=== PATIENT | male | born 1975 | race Caucasian/White ===

== ENCOUNTER 2022-01-24 06:57 | Inpatient (IN) | payer OTHER ==
[2022-01-24 07:47] LABS: ALT (SGPT) 14 U/L (8-55); AST (SGOT) 16 U/L (5-34); Acetaminophen Less than 10.0 mcg/mL (10.0-30.0); Albumin 4.9 g/dL (3.5-5.0); Alcohol Less than 10 mg/dL (Less than 10); Alkaline Phosphatase 106 U/L (40-110); Anion Gap 14 mmol/L (10-20); BUN (Urea Nitrogen) 13 mg/dL (8.9-20.6); Bilirubin, Total 0.8 mg/dL (0.2-1.2); Calc. Creatinine Clearance 0 mL/min (70-130); Calcium 10.2 mg/dL (7.8-10.44); Carbon Dioxide 27 mmol/L (22-29); Chloride 102 mmol/L (98-107); Estimated GFR 87; Globulin 3.2 g/dL (2.4-3.5); Glucose 138 mg/dL (70-105); Potassium 3.6 mmol/L (3.5-5.1); Protein, Total 8.1 g/dL (6.0-8.3); Salicylate Less than 8.0 mg/dL (15.0-30.0); Sodium 139 mmol/L (136-145)
[2022-01-24 07:51] LABS: #Basophils 0.1 thou/uL (0.0-0.2); #Eosinphils 0.1 thou/uL (0.0-0.7); #Lymphocytes 2.5 thou/uL (1.20-3.40); #Monocytes 0.6 thou/uL (0.11-0.59); #Neutrophils 3.4 thou/uL (1.40-6.50); %Basophils 0.9 % (0.0-1.0); %Eosinophils 1.9 % (0.0-10.0); %Neutrophils 51.2 % (42.0-75.0); Hemoglobin 17.1 g/dL (14.0-18.0); Mean Corpuscular HGB CONC 34.1 g/dL (32.0-36.0); Mean Corpuscular Volume 93.9 fL (78.0-98.0); Platelet Count 191 thou/uL (130-400); RBC Distribution Width 11.7 % (11.5-14.5); Red Blood Cell (RBC) Count 5.35 mill/uL (4.70-6.10); White Blood Cell (WBC) Count 6.7 thou/uL (4.8-10.8)
[2022-01-24] MEDS ORDERED: Iopamidol-370 76% 500 ML 1 ML ONE (08:35)
[2022-01-24] MEDS ORDERED: Iopamidol 370 76% 50 ML VIAL FS ONE (08:36)
[2022-01-24] MEDS ORDERED: Acetaminophen 500 MG TAB ONE (08:45)
[2022-01-24 09:29] LABS: Amphetamine Not Detected (NotDetected); Barbiturates Screen Not Detected (NotDetected); Benzodiazepine Screen Not Detected (NotDetected); Cocaine Metabolite Screen Not Detected (NotDetected); Methadone Not Detected (NotDetected); Methamphetamine Not Detected (NotDetected); Opiate Screen Not Detected (NotDetected); Oxycodone Screen Not Detected (NotDetected); Phencyclidine (PCP) Not Detected (NotDetected); THC/Cannabinoid Screen Not Detected (NotDetected); Tricyclic Screen Not Detected (NotDetected)
[2022-01-24] MEDS ORDERED: HYDROcodone/Acetaminophen 5/325 mg Tablet PO PRN (10:35)
[2022-01-24] MEDS ORDERED: Ondansetron PF 4 MG/2 ML Vial IVP PRN (10:35)
[2022-01-24] MEDS ORDERED: Guaifenesin DM 100-10/5 ML UDCUP PO PRN (10:35)
[2022-01-24] MEDS ORDERED: Acetaminophen 325 MG TAB PO PRN (10:35)
[2022-01-24] MEDS ORDERED: Senokot S 8.6-50 MG TAB PO PRN (10:35)
[2022-01-24 11:53] LABS: HBCM Index 0.05 S/CO (0-0.79); HBSAg Index 0.31 S/CO (0-0.99); HIV (1/2) Antibody/Antigen Non-Reactive (NonReactive); HIV 1/2 INDEX 0.22 S/CO (<1.00); Hep A IgM AB Non-Reactive (NonReactive); Hep A IgM S/CO 0.08 S/CO (0-0.79); Hep B Surf Ag Non-Reactive S/CO (NonReactive); Hepatitis B Core IgM Abs Non-Reactive (NonReactive)
[2022-01-24 11:55] LABS: Hep C IgG Ab Reflex HepC Qnt (NonReactive); Hep C Index 17.17 S/CO (0-0.79)
[2022-01-24 15:19] VITALS: BMI 20.6
[2022-01-24] MEDS: Famotidine 20 MG TAB PO SCH (21:42)
[2022-01-25] MEDS: Famotidine 20 MG TAB PO SCH ×2 (08:57→22:22)
[2022-01-25] MEDS: OLANZapine 5 MG TAB PO SCH (08:57)
[2022-01-25 11:59] LABS: #Eosinphils 0.1 thou/uL (0.0-0.7); #Lymphocytes 2.1 thou/uL (1.20-3.40); #Monocytes 0.7 thou/uL (0.11-0.59); #Neutrophils 7.2 thou/uL (1.40-6.50); %Basophils 0.3 % (0.0-1.0); %Eosinophils 1.1 % (0.0-10.0); %Lymphocytes 20.6 % (21.0-51.0); %Monocytes 6.8 % (0.0-10.0); %Neutrophils 71.1 % (42.0-75.0); Hemoglobin 15.4 g/dL (14.0-18.0); Mean Corpuscular HGB CONC 32.6 g/dL (32.0-36.0); Mean Corpuscular Hemoglobin 30.9 pg (27.0-31.0); Mean Corpuscular Volume 94.9 fL (78.0-98.0); Mean Platelet Volume 9.6 fL (7.4-10.4); Platelet Count 206 thou/uL (130-400); RBC Distribution Width 11.6 % (11.5-14.5); Red Blood Cell (RBC) Count 4.98 mill/uL (4.70-6.10); White Blood Cell (WBC) Count 10.1 thou/uL (4.8-10.8)
[2022-01-25 12:18] LABS: Syphilis Antibody INDETERMINATE (Nonreactive)
[2022-01-25 12:19] LABS: Anion Gap 14 mmol/L (10-20); BUN (Urea Nitrogen) 11 mg/dL (8.9-20.6); Calc. Creatinine Clearance 81 mL/min (70-130); Calcium 9.5 mg/dL (7.8-10.44); Carbon Dioxide 23 mmol/L (22-29); Estimated GFR 100; Glucose 145 mg/dL (70-105); Sodium 137 mmol/L (136-145)
[2022-01-25 12:43] LABS: Chloride 104 mmol/L (98-107)
[2022-01-26] MEDS ORDERED: Iopamidol-370 76% 500 ML 1 ML ONE (10:02)
[2022-01-26] MEDS: OLANZapine 5 MG TAB PO SCH (12:08)
[2022-01-26] MEDS: Famotidine 20 MG TAB PO SCH ×2 (12:08→22:41)
[2022-01-26] MEDS ORDERED: Bicillin LA 2.4 MILL.UNITS/4 ML SYRINGE IM SCH (15:00)
[2022-01-27] MEDS: Famotidine 20 MG TAB PO SCH ×2 (09:36→21:37)
[2022-01-27] MEDS: OLANZapine 5 MG TAB PO SCH ×2 (09:36→09:38)
[2022-01-27] MEDS ORDERED: Polyethylene Glycol 3350 17 GM Packet PO SCH (11:45)
[2022-01-27] MEDS ORDERED: Docusate 100 MG CAP PO SCH (11:45)
[2022-01-27] MEDS ORDERED: FLU VACC QS2022-23(6MOS UP)/PF 60 MCG/0.5 ML SYRINGE IM ONE (14:30)
[2022-01-27] MEDS ORDERED: Docusate 100 MG CAP PO PRN (14:57)
[2022-01-27] MEDS ORDERED: Polyethylene Glycol 3350 17 GM Packet PO PRN (14:57)
[2022-01-27 23:08] LABS: Hep C PCR-Quant HCV Not Detected IU/mL (.)
[2022-01-28 08:24] VITALS: BP 110/72; TEMP 97.7
[2022-01-28] MEDS: OLANZapine 5 MG TAB PO SCH (09:11)
[2022-01-28] MEDS: Famotidine 20 MG TAB PO SCH (09:30)
[2022-01-28] MEDS ORDERED: Docusate 100 MG CAP PO SCH ×2 (14:30→21:00)
[2022-01-28] MEDS ORDERED: Polyethylene Glycol 3350 17 GM Packet PO SCH (14:30)
[2022-01-29 03:13] LABS: QuantiFERON-TB Gold Plus Negative (Negative)
[2022-01-29] MEDS ORDERED: Polyethylene Glycol 3350 17 GM Packet PO SCH (09:00)
== END 2022-01-28 17:46 | DRG 913 ==
LOC: ERS 06:57 → SUATTDRO 06:57 → EEVIPCON 06:57 → T4-B 10:56
PROVIDERS: ADMIT Hospitalist; ATTEND Internal Medicine
DX: T14.91XA Suicide attempt, initial encounter (principal); A19.1 Acute miliary tuberculosis of multiple sites; X83.8XXA Intentional self-harm by other specified means, initial encounter; Z86.19 Personal history of other infectious and parasitic diseases; Z87.891 Personal history of nicotine dependence; Z79.899 Other long term (current) drug therapy; F32.A Depression, unspecified; A52.8 Late syphilis, latent; K59.00 Constipation, unspecified; T43.596A Underdosing of other antipsychotics and neuroleptics, initial encounter; Z91.14 Patient's other noncompliance with medication regimen; F41.9 Anxiety disorder, unspecified; Y92.89 Other specified places as the place of occurrence of the external cause; Z20.822 Contact with and (suspected) exposure to COVID-19; F20.9 Schizophrenia, unspecified; Z23 Encounter for immunization
CPT/HCPCS: 36415; 70450; 70498; 71260; 72125; 74177; 80048; 80053; 80074; 80306; 80307; 82164; 84443; 85025; 86480; 86593; 86780; 87385; 87389; 87522; 87899; 90471; 90686; 94760; G0008; J0561; Q9967; U0003; U0005

== ENCOUNTER 2022-08-21 11:02 | Emergency (ER) | payer OTHER, SELFPAY ==
[2022-08-21 12:06] LABS: #Eosinphils 0.1 thou/uL (0.0-0.7); #Neutrophils 6.4 thou/uL (1.40-6.50); %Basophils 0.2 % (0.0-1.0); %Eosinophils 0.6 % (0.0-10.0); %Lymphocytes 23.6 % (21.0-51.0); %Monocytes 9.9 % (0.0-10.0); %Neutrophils 65.4 % (42.0-75.0); Hemoglobin 17.5 g/dL (14.0-18.0); Mean Corpuscular HGB CONC 35.1 g/dL (32.0-36.0); Mean Corpuscular Hemoglobin 31.5 pg (27.0-31.0); Mean Corpuscular Volume 89.7 fl (78.0-98.0); Mean Platelet Volume 10.7 fL (7.4-10.4); Platelet Count 254 10x3/uL (130-400); RBC Distribution Width 12.7 % (11.5-14.5); Red Blood Cell (RBC) Count 5.56 mill/uL (4.70-6.10); White Blood Cell (WBC) Count 9.7 10x3/uL (4.8-10.8)
[2022-08-21 12:31] LABS: ALT (SGPT) 17 U/L (8-55); AST (SGOT) 16 U/L (5-34); Acetaminophen Less than 10.0 mcg/mL (10.0-30.0); Albumin 4.4 g/dL (3.5-5.0); Alcohol Less than 10 mg/dL (Less than 10); Alkaline Phosphatase 95 U/L (40-110); Anion Gap 15 mmol/L (10-20); BUN (Urea Nitrogen) 11 mg/dL (8.9-20.6); Bilirubin, Total 0.9 mg/dL (0.2-1.2); CK (CPK) 141 U/L (30-200); Calc. Creatinine Clearance 0 mL/min (70-130); Calcium 9.4 mg/dL (7.8-10.44); Carbon Dioxide 23 mmol/L (22-29); Chloride 101 mmol/L (98-107); Estimated GFR 80; Globulin 2.7 g/dL (2.4-3.5); Glucose 142 mg/dL (70-105); Potassium 3.7 mmol/L (3.5-5.1); Protein, Total 7.1 g/dL (6.0-8.3); Salicylate Less than 8.0 mg/dL (15.0-30.0); Sodium 135 mmol/L (136-145)
[2022-08-21 15:42] LABS: Amphetamine Not Detected (NotDetected); Barbiturates Screen Not Detected (NotDetected); Benzodiazepine Screen Not Detected (NotDetected); Cocaine Metabolite Screen Not Detected (NotDetected); Methadone Not Detected (NotDetected); Methamphetamine Not Detected (NotDetected); Opiate Screen Not Detected (NotDetected); Oxycodone Screen Not Detected (NotDetected); Phencyclidine (PCP) Not Detected (NotDetected); THC/Cannabinoid Screen Detected (NotDetected); Tricyclic Screen Not Detected (NotDetected)
== END 2022-08-21 20:04 ==
LOC: ERS 11:02
DX: S80.02XA Contusion of left knee, initial encounter (principal); R45.851 Suicidal ideations; I10 Essential (primary) hypertension; W19.XXXA Unspecified fall, initial encounter; Z87.891 Personal history of nicotine dependence
CPT/HCPCS: 36415; 70450; 71045; 80053; 80306; 80307; 82550; 84443; 85025